=== PATIENT | male | born 1995 | race Caucasian/White ===

== ENCOUNTER 2017-11-02 10:46 | Inpatient (IN) | payer BC, OTHER ==
[~2017-11-02] VITALS: Ht 177.8 cm; Wt 59.4 kg
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
[2017-11-02 11:26] VITALS: BP 147/85
[2017-11-02] MEDS ORDERED: LORAZEPAM 2 MG/1 ML VIAL IM PRN (11:30)
[2017-11-02] MEDS ORDERED: MAG HYDROX/AL HYDROX/SIMETH 30 ML LIQUID UDC PO PRN (11:30)
[2017-11-02] MEDS ORDERED: MAGNESIUM HYDROXIDE 30 ML LIQUID UDC PO PRN (11:30)
[2017-11-02] MEDS ORDERED: DIAZEPAM 10 MG TABLET PO PRN (11:30)
[2017-11-02] MEDS ORDERED: DIAZEPAM 5 MG TABLET PO PRN (11:30)
[2017-11-02] MEDS ORDERED: LOPERAMIDE HCL 2 MG CAPSULE PO PRN ×2 (11:30)
[2017-11-02] MEDS ORDERED: MIRALAX 17 GM POWD.PACK PO PRN (11:30)
[2017-11-02] MEDS ORDERED: CLONIDINE HCL 0.1 MG TABLET PO PRN (11:30)
[2017-11-02] MEDS ORDERED: BUPRENORPHINE HCL 2 MG TAB.SUBL SL PRN (11:30)
[2017-11-02] MEDS ORDERED: ACETAMINOPHEN 325 MG TABLET PO PRN (11:30)
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
[2017-11-02 12:00] VITALS: BP 147/85
[2017-11-02] MEDS ORDERED: NICOTINE POLACRILEX 4 MG GUM-PK OF TEN BC PRN (12:15)
--- NOTE | 2017-11-02 12:30 | NUR ---
Nursing Note: Patient was given 2 bottles of water to increase oral fluid intake so he can provide urine for UDS. Patient states that he will try. However, patient continues to have inappropriate behavior by saying "This place is so stupid!" Staff redirected the patient and reassurance was provided.
[2017-11-02] MEDS: PHENOBARBITAL 60 MG TABLET PO SCH ×3 (13:00→21:47)
[2017-11-02] MEDS: METHOCARBAMOL 750 MG TABLET PO PRN (13:21)
[2017-11-02] MEDS: NICOTINE 14 MG/24HR PATCH TD PRN (13:26)
--- NOTE | 2017-11-02 13:26 | NUR ---
Clonidine 0.1mg PO/Robaxin 750 mg PO given: Patient complained of chills, hot flashes, anxiety and agitation. BP 147/85, Pulse 101. Also noted with complain of 6/10 myalgia. Education provided regarding med being administered. Patient stated "I know what meds I am taking and I don't need you to educate me on that. I want my phenobarbital." Reminded patient of unit's rules and regulations and that he needs to provide urine for UDS. Patient stated "This is such a stupid rule! Tell Dr. Brown that he is a douche bag." Boundaries were set and encouraged good behavior. Patient verbalized consent and agreed to take medications. PRN Clonidine and Robaxin were given as ordered. Will monitor for effectiveness.
--- NOTE | 2017-11-02 13:59 | NUR ---
Phenobarbital at 1300 PO not given: Patient still has not provided urine for UDS at this time. Phenobarbital at 1300 not given.
--- NOTE | 2017-11-02 14:26 | NUR ---
Re-assessment: Clonidine and Robaxin Per patient, Clonidine and Robaxin were mildly effective in reducing anxiety, agitation, chills, hot flashes, and muscle pain. PL 5/10. Patient was encouraged to increase oral fluid intake but is non-compliant. Patient is still unable to provide urine for UDS at this time.
[2017-11-02 14:45] LABS: BASOPHILS # (AUTO) 0.1 K/uL (0.0-8.0); BASOPHILS % (AUTO) 1.3 % (0.0-2.0); EOSINOPHILS # (AUTO) 0.1 K/uL (0.0-0.7); EOSINOPHILS % (AUTO) 2.2 % (0.0-7.0); HEMATOCRIT 41.3 % (36.7-47.1); HEMOGLOBIN 14.2 g/dL (12.5-16.3); LYMPHOCYTES # (AUTO) 1.4 K/uL (20.0-40.0); LYMPHOCYTES % (AUTO) 25.1 % (20.5-51.5); MEAN CORPUSCULAR HEMOGLOBIN 29.9 uug (23.8-33.4); MEAN CORPUSCULAR HGB CONC 34 g/dL (32.5-36.3); MEAN CORPUSCULAR VOLUME 86.9 fL (73.0-96.2); MONOCYTES # (AUTO) 0.4 K/uL (2.0-10.0); MONOCYTES % (AUTO) 6.5 % (0.0-11.0); NEUTROPHILS # (AUTO) 3.5 K/uL (1.8-8.9); NEUTROPHILS % (AUTO) 64.9 % (38.5-71.5); PLATELET COUNT (AUTO) 258 K/uL (152-348); RED BLOOD CELL COUNT(AUTO) 4.75 MIL/uL (4.06-5.63); WHITE BLOOD COUNT (AUTO) 5.5 K/uL (3.6-10.2)
[2017-11-02] MEDS ORDERED: PREG300C PO (14:51)
[2017-11-02] MEDS ORDERED: DIAZ10TA PO (14:51)
[2017-11-02] MEDS ORDERED: GABA-532 PO (14:51)
[2017-11-02 14:56] LABS: ALANINE AMINOTRANSFERASE 21 U/L (16-63); ALKALINE PHOSPHATASE 109 U/L (50-136); ASPARTATE AMINOTRANSFERASE 16 U/L (15-37); BILIRUBIN,TOTAL 0.3 mg/dL (0.2-1.0); CARBON DIOXIDE 32 mmol/L (21-32); CHLORIDE 105 mmol/L (98-107); CREATININE 0.8 mg/dL (0.6-1.3); GLUCOSE 80 mg/dL (74-106); MAGNESIUM 1.8 mg/dL (1.8-2.4); POTASSIUM 4.4 mmol/L (3.5-5.1); TOTAL PROTEIN, SERUM 6.9 g/dL (6.4-8.2); UREA NITROGEN, BLOOD 10 mg/dL (7-18)
[2017-11-02 15:12] LABS: ETHANOL < 3 MG/DL (0-0)
[2017-11-02 16:00] VITALS: BP 114/73
--- NOTE | 2017-11-02 16:28 | NUR ---
Zofran 4 mg IM given/Behavior Patient noted with x 1 episode of vomiting immediately after giving Phenobarbital 120mg PO. Offered Zofran 4 mg IM. Patient is unable to tolerate PO Zofran at this time due to vomiting and nausea. Patient stated "I don't want Zofran injection, I don't need it. I know what that is. I need Phenobarbital. I need 120 mg of Phenobarbital." Education provided and informed patient that Zofran will help him feel more comfortable and to prevent him from vomiting even more." Patient eventually agreed on taking the medication. Zofran 4 mg IM given was given. Will monitor for effectiveness. As soon after Zofran 4 mg IM was given, patient then demanded to make a phone call, yelling "I need to make a phone call right now! I need to tell my parents what is going on here. They need to know that you guys are not medicating me and I am about to have a seizure right now!" Re-assurance provided that staff and nurses are doing everything they can to keep him comfortable. BP 114/73, Pulse 81. Dr. Brown made aware and notified of patient's behavior. Patient is still unable to provide urine at this time. Offered patient to be straight catheterized to be able to provide urine. However patient strongly refused and stated "I don't want you guys to sodomize me." Patient education provided and reassurance provided. Respected patient's rights. Will continue to monitor. Addendum: 11/02/17 at 1722 by LUISA BONDS LVN Error in charting. Wrong time documented. Correct time is at 1658.
--- NOTE | 2017-11-02 16:43 | NUR ---
Phenobarbital 120 mg PO given for 1700: Dr. Brown ordered for patient to receive 1700 dose of Phenobarbital despite the patient not being able to provide urine for UDS. Patient continues to be non-compliant with increasing oral fluid intake. States "I have been drinking water." However 2 water bottles that were provided to him since upon admission have not been touched as witnessed and reported by male BRUSH HAND assigned to the patient.
[2017-11-02] MEDS: ONDANSETRON 4 MG/2 ML VIAL IM PRN (16:58)
--- NOTE | 2017-11-02 16:58 | NUR ---
Zofran 4 mg IM given/Behavior Patient noted with x 1 episode of vomiting immediately after giving Phenobarbital 120mg PO. Offered Zofran 4 mg IM. Patient is unable to tolerate PO Zofran at this time due to vomiting and nausea. Patient stated "I don't want Zofran injection, I don't need it. I know what that is. I need Phenobarbital. I need 120 mg of Phenobarbital." Education provided and informed patient that Zofran will help him feel more comfortable and to prevent him from vomiting even more." Patient eventually agreed on taking the medication. Zofran 4 mg IM given was given. Will monitor for effectiveness. As soon after Zofran 4 mg IM was given, patient then demanded to make a phone call, yelling "I need to make a phone call right now! I need to tell my parents what is going on here. They need to know that you guys are not medicating me and I am about to have a seizure right now!" Re-assurance provided that staff and nurses are doing everything they can to keep him comfortable. BP 114/73, Pulse 81. Dr. Brown made aware and notified of patient's behavior. Patient is still unable to provide urine at this time. Offered patient to be straight catheterized to be able to provide urine. However patient strongly refused and stated "I don't want you guys to sodomize me." Patient education provided and reassurance provided. Respected patient's rights. Will continue to monitor.
[2017-11-02] MEDS ORDERED: PHENOBARBITAL 60 MG TABLET PO ONE (17:15)
--- NOTE | 2017-11-02 17:28 | NUR ---
Re-assessment: Zofran 4 mg IM No further episodes of vomiting noted. Relief from nausea noted
--- NOTE | 2017-11-02 17:37 | NUR ---
Phenobarbital 90 mg PO given: MD Brown ordered for patient to receive 90 mg of Phenobarbital at this time. Due to patient vomitted immediately after the 1700 dose of Phenobarbital 120mg. Patient education provided. Patient verbalized satisfaction with care.
--- NOTE | 2017-11-02 19:13 | NUR ---
End of Shift Notes: Patient still has not provided urine at this time but was placed on a 6-day Phenobarbital and 6-day Subutex taper as ordered. Initial dose given at 1700. Patient noted with multiple behavioral issues and non-adherent to policies rules and regulations. Last CIWA 9, COWS 8. One time Phenobarbital 90 mg PO given due to patient immediately vomitted 120 mg dose at 1700. Zofran 4 mg IM given at 1658 with help after 30 minutes. On 1:1 at this time due to seizure risk and high Phenobarbital taper. All needs met and attended. Will continue to monitor.
--- NOTE | 2017-11-02 19:45 | NUR ---
Start of Shift Notes Received a 22 year old male admitted on 11/02/2017 for Opiates and Benzo dependence. He is alert and oriented x 4. Verbally responsive. He reports family hx of heart disease, anxiety disorder, substance abuse. Patient placed on a 1:1 at this time due to patient will be on high doses of phenobarbital medication regimen and high seizure risk. During the rounds at 1945, px reported high anxiety and auditory hallucination but can't understand what he hears. COWS 8 and CIWA 11. Respirations are even and unlabored. Safety precautions observed. Bed on lowest position, side rails up 2x, and call light within reach. We'll continue to monitor.
[2017-11-02 20:00] VITALS: BP 132/79
[2017-11-02] MEDS: ONDANSETRON ODT 4 MG TAB.RAPDIS SL PRN (20:49)
--- NOTE | 2017-11-02 20:49 | NUR ---
PRN Zofran SL Px vomited 1x. Zofran 4 mg/tab, 1 tab given SL as PRN med. We'll continue to monitor.
[2017-11-02] MEDS: OXCARBAZEPINE 150 MG TABLET PO SCH (21:47)
--- NOTE | 2017-11-02 21:49 | NUR ---
Reassessment of Nausea Px verbalized nausea still there but emesis stopped after an hour of administration of Zofran 4 mg tab SL. We'll continue to monitor.
[2017-11-03] VITALS: BP 123/72
--- NOTE | 2017-11-03 | NUR ---
COWS and CIWA deferred COWS and CIWA deferred due to the px is asleep. To assess if the px is awake per doctor's order. We'll continue to monitor.
[2017-11-03] MEDS: DIAZEPAM 10 MG TABLET PO PRN ×2 (03:45→12:38)
[2017-11-03] MEDS: METHOCARBAMOL 750 MG TABLET PO PRN ×2 (03:45→12:38)
--- NOTE | 2017-11-03 03:45 | NUR ---
PRN meds Px woke up with complaints of body aches 07/05, very high anxiety, tremors, still with auditory hallucinations, mild nausea, mild H/A and agitations and verbalizes that he is withdrawing. COWS 12 and CIWA 15. Valium 10 mg/tab, 1 tab and Robaxin 750 mg/tab, 1 tab given PO as PRN med. Subutex 2 mg/tab, 2 tabs given SL as PRN med. We'll continue to monitor.
[2017-11-03 04:00] VITALS: BP 127/77
--- NOTE | 2017-11-03 07:00 | NUR ---
PRN Valium and Zofran Px complained of High Anxiety, hallucinations, nausea, tremors, body pains, H/A. CIWA 20. Valium 10 mg/tab, 2 tabs given PO and Zofran 4 mg/tab, 1 tab given SL as PRN meds. We'll continue to monitor.
[2017-11-03] MEDS: ONDANSETRON ODT 4 MG TAB.RAPDIS SL PRN ×2 (07:02→15:09)
--- NOTE | 2017-11-03 07:21 | NUR ---
End of Shift Notes 22 year old male admitted on 11/02/2017 for Opiates and Benzo dependence. He is alert and oriented x 4. Verbally responsive. He reports family hx of heart disease, anxiety disorder, substance abuse. Patient placed on a 1:1 at this time due to patient will be on high doses of phenobarbital medication regimen and high seizure risk. During the shift, px reported high anxiety and auditory hallucination but cant understand what he hears. Px vomited 1x. Zofran 4 mg/tab, 1 tab given SL as PRN med. Vomiting was resolved after an hour. At 0345, Px woke up with complaints of body aches 8/10, very high anxiety, tremors, still with auditory hallucinations, mild nausea, mild H/A and agitations and verbalizes that he is withdrawing. COWS 12 and CIWA 15. Valium 10 mg/tab, 1 tab and Robaxin 750 mg/tab, 1 tab given PO as PRN med. Subutex 2 mg/tab, 2 tabs given SL as PRN med. Oral intake of 500 ml, NO urine, No BM. Slept for 6 hours. Still no UDS. At 0700, Px complained of High Anxiety, hallucinations, nausea, tremors, body pains, H/A. CIWA 20. Valium 10 mg/tab, 2 tabs given PO and Zofran 4 mg/tab, 1 tab given SL as PRN meds. Respirations are even and unlabored. Safety precautions observed. Bed on lowest position, side rails up 2x, and call light within reach. We'll continue to monitor.
--- NOTE | 2017-11-03 07:35 | NUR ---
START OF SHIT Received report from lamps tester and inspector nurse. Pt is lying in bed watching TV. 1:[address] for safety r/t unsteady gait. He is a 22 yo male admitted to [facility] on 11/02 for BZD and suboxone dependence. NKA, full code status, and on a regular diet. PMH of neuropathy, seizures r/t withdrawal, neuropathy, anxiety, mood disorder, asthma, and ADHD. On admission he reported using clonazolam 5mg per day, suboxone 16mg per day, ambien 20mg per day, phenibut unspecified amount, and valium 10mg per day. 6 day Phenobarbital and 6 day Subutex start today. He reports chills, nausea, headache, and body aches. Fall and seizure precautions in place. Bed is down with call light in reach. Addendum: 11/03/17 at 1325 by KEVIN SMITH RN Pt denies any hallucinations. He reports "I slept so I don't have them".
[2017-11-03 08:00] VITALS: BP 126/70
--- NOTE | 2017-11-03 08:02 | NUR ---
PRN Zofran reassessment PRN Zofran administered by night nurse. Pt reports medication not effective for nausea. He continues to have nausea without vomiting.
[2017-11-03] MEDS: ONDANSETRON 4 MG/2 ML VIAL IM PRN (08:04)
--- NOTE | 2017-11-03 08:04 | NUR ---
PRN Zofran IM Pt reports continued nausea. Zofran IM administered.
--- NOTE | 2017-11-03 08:34 | NUR ---
PRN Zofran IM reassessment PRN Zofran IM effective. Pt reports nausea is relieved.
[2017-11-03] MEDS: PHENOBARBITAL 60 MG TABLET PO SCH ×3 (08:54→21:22)
[2017-11-03] MEDS: OXCARBAZEPINE 150 MG TABLET PO SCH (08:55)
[2017-11-03] MEDS: IBUPROFEN 600 MG TABLET PO PRN ×2 (08:56→17:13)
[2017-11-03] MEDS: BUPRENORPHINE HCL 2 MG TAB.SUBL SL SCH ×4 (08:56→21:23)
--- NOTE | 2017-11-03 08:57 | NUR ---
PRN Motrin Pt reports headache. PRN Motrin administered.
[2017-11-03] MEDS ORDERED: TUBERCULIN,PURIF.PROT.DERIV. 5 TU/0.1 ML TEST ID ONE (09:00)
--- NOTE | 2017-11-03 09:57 | NUR ---
PRN Motrin reassessment PRN Motrin effective. Pt reports headache is relieved.
--- NOTE | 2017-11-03 11:00 | NUR ---
Nursing Note Pt is having urinary retention. Bladder scan performed with >900mL detected. Pt was able to void a large amount or urine independently immediately after. Urine sample obtained for drug screen. aware.
[2017-11-03 11:54] LABS: *AMPHETAMINE, URINE NEGATIVE (NEGATIVE); *BARBITURATE, URINE POSITIVE (NEGATIVE); *CANNABINOID, URINE POSITIVE (NEGATIVE); *COCCAINE, URINE NEGATIVE (NEGATIVE); *OPIATE, URINE NEGATIVE (NEGATIVE); *PHENCYCLIDINE SCREEN,URINE NEGATIVE (NEGATIVE)
[2017-11-03 12:00] VITALS: BP 124/78
--- NOTE | 2017-11-03 12:40 | NUR ---
PRN Valium, Tylenol, and Robaxin Pt reports anxiety, headache, and body aches. He is observed with facial flushing, mild tremors, and restless legs. CIWA score 11. PRN Valium 10mg, Tylenol, and Robaxin administered.
[2017-11-03] MEDS ORDERED: TAMSULOSIN HCL 0.4 MG CAP.SR.24H PO SCH (13:00)
[2017-11-03] MEDS ORDERED: PHENOBARBITAL 60 MG TABLET PO SCH (13:00)
--- NOTE | 2017-11-03 13:40 | NUR ---
PRN Valium, Tylenol, and Robaxin reassessment PRN Valium, Tylenol, and Robaxin effective. Pt reports anxiety level is reduced. Headache is relieved. Body aches are reduced. CIWA score 4.
[2017-11-03] MEDS ORDERED: OLANZAPINE ZYDIS 5 MG TAB.RAPDIS PO PRN (13:45)
--- NOTE | 2017-11-03 15:09 | NUR ---
PRN Zofran Pt reports nausea without vomiting. PRN Zofran administered.
--- NOTE | 2017-11-03 15:39 | NUR ---
PRN Zofran reassessment PRN Zofran effective. Pt reports nausea is relieved.
[2017-11-03 16:07] LABS: HEPATITIS B SURFACE AG Negative (Negative)
[2017-11-03 16:30] VITALS: BP 107/75
--- NOTE | 2017-11-03 17:15 | NUR ---
PRN Motrin Pt reports headache 04/04. PRN Motrin administered.
--- NOTE | 2017-11-03 18:15 | NUR ---
PRN Motrin reassessment PRN Motrin effective. Pt reports headache is relieved.
--- NOTE | 2017-11-03 19:10 | NUR ---
END OF SHIFT Report provided to shift supervisor melting nurse. Pt is lying in bed resting. He is a 22 yo male admitted to [facility] on 11/02 for BZD and suboxone dependence. He is A&O and ambulatory with a steady gait. 1:1 CUSTOMS AND BORDER PROTECTION INSPECTOR removed. NKA, full code status, and on a regular diet. PMH of neuropathy, seizures r/t drug withdrawal, neuropathy, anxiety, mood disorder, asthma, and ADHD. On admission he reported using clonazolam 5mg per day, suboxone 16mg per day, ambien 20mg per day, phenibut unspecified amount, and valium 10mg per day. 6 day Phenobarbital and 6 day Subutex started today. Pt provided urine for UDS and voided freely. PRN Valium, Zofran IM, Zofran PO, Motrin x2, Robaxin, and Tylenol administered. Last COWS 7 and CIWA 4. He drank 1500mL. Fall and seizure precautions in place. Bed is down with call light in reach.
--- NOTE | 2017-11-03 19:15 | NUR ---
START OF SHIFT NOTE : Pt. is a 22 yo male admitted to [facility] on 11/02/2017 for BZD and suboxone dependence. NKA, full code status, and on a regular diet. PMH of neuropathy, seizures r/t drug withdrawal, neuropathy, anxiety, mood disorder, asthma, and ADHD. Pt. placed on modified 6 days Phenobarbital an dmodified 6 days Subutex taper on 11/02/2017, tolerating well. Pt. is in the activity room , watching TV , but wants his medications after 20:00. . Safety measures in place : bed on lowest position with side rails x2 up for safety, call light within reach. Will continue to monitor closely and offer help.
[2017-11-03 20:00] VITALS: BP 135/77
[2017-11-03] MEDS ORDERED: OXCARBAZEPINE 300 MG TABLET PO SCH (21:00)
--- NOTE | 2017-11-03 21:00 | NUR ---
PRN BENADRYL Pt. complains of sleeplessness. PRN BENADRYL given as ordered. Safety measures in place : bed on lowest position with side rails x2 up for safety, call light within reach. Will continue to monitor closely and offer help.
[2017-11-03] MEDS: diphenhydrAMINE 50 MG CAPSULE PO PRN (21:22)
[2017-11-03] MEDS: TAMSULOSIN HCL 0.4 MG CAP.SR.24H PO SCH (21:22)
--- NOTE | 2017-11-03 22:00 | NUR ---
RE-ASSESSMENT NAV Pt. is sleeping, VS=16, unlabored and even.. Safety measures in place : bed on lowest position with side rails x2 up for safety, call light within reach. Will continue to monitor closely and offer help.
--- NOTE | 2017-11-04 06:53 | NUR ---
END OF SHIFT NOTE : Pt. is a 22 yo male admitted to [facility] on 11/02/2017 for BZD and suboxone dependence. NKA, full code status, and on a regular diet. PMH of neuropathy, seizures r/t drug withdrawal, neuropathy, anxiety, mood disorder, asthma, and ADHD. Pt. placed on modified 6 days Phenobarbital an dmodified 6 days Subutex taper on 11/02/2017, tolerating wellPt remains compliant with the treatment plan. PRN BENADRYL given during my shift. V/S remain WNL. RR=16, even and unlabored, lungs clear upon auscultation, abdomen soft and non- distended. Pt denies nausea, vomiting and diarrhea. CIWA and COWS taken when pt. was alert during the night, LAST CIWA=3 ,COWS=4 at 0400 , INTAKE= 1000 ml, voided x3 , slept6 hours. Safety measures in place : bed on lowest position with side rails x2 up for safety, call light within reach. Will continue to monitor closely and offer help.
--- NOTE | 2017-11-04 07:45 | NUR ---
START OF SHIFT RECEIVED PT IN ROOM, A/O X4, RESPIRATIONS EVEN AND UNLABORED. PT REPORTS HAVING GENERALIZED BODY ACHES, ANXIETY AND RESTLESSNESS. PT IS ON A MODIFIED 6 DAY SUBUTEX AND PHENOBARBITAL TAPER ENDING ON THE 11/08/17. PT STATES, "I FINALLY SLEPT WELL LAST NIGHT," ENCOURAGED PT TO DRINK MORE FLUIDS TO PRMOTE DETOX PROCESS. BED ON LOWEST POSITION WITH SIDE RAILS UPX2, CALL LIGHT WITHIN REACH. SAFETY MEASURES IN PLACE. WILL CONTINUE TO MONITOR AND PROVIDE SUPPORT.
[2017-11-04 08:00] VITALS: BP 112/70
[2017-11-04] MEDS: METHOCARBAMOL 750 MG TABLET PO PRN (08:53)
--- NOTE | 2017-11-04 08:53 | NUR ---
PRN PT C/O OF HEADACHE AND PT C/O OF PAIN IN THE SIDE; PT STATED, "I HAVE PAIN IN THE SIDE FROM SLEEPING." MOTRIN 600 MG PO PRN AND ROBAXIN 750 MG PO PRN WAS ADMINISTRATED. PT TOLERATED WELL.
[2017-11-04] MEDS: PHENOBARBITAL 60 MG TABLET PO SCH ×3 (08:54→21:34)
[2017-11-04] MEDS: BUPRENORPHINE HCL 2 MG TAB.SUBL SL SCH ×3 (08:54→21:36)
[2017-11-04] MEDS: IBUPROFEN 600 MG TABLET PO PRN (08:54)
[2017-11-04] MEDS ORDERED: OXCARBAZEPINE 150 MG TABLET PO SCH (09:00)
--- NOTE | 2017-11-04 09:53 | NUR ---
REASSESSMENT PT REPORTED ROBAXIN AND MOTRIN WAS EFFECTIVE. WILL CONTINUE TO MONITOR.
--- NOTE | 2017-11-04 10:45 | NUR ---
Therapist prompted client about group times. Client stated he most likely won't attend groups today because he is not feeling well.
[2017-11-04 12:00] VITALS: BP 122/76
[2017-11-04] MEDS ORDERED: DIAZEPAM 5 MG TABLET PO PRN (12:00)
[2017-11-04] MEDS ORDERED: DIAZEPAM 10 MG TABLET PO PRN ×2 (12:00)
--- NOTE | 2017-11-04 12:39 | NUR ---
PRN PT C/O OF INCREASED S/S OF W/D AND HIGH ANXIETY. VALIUM 10 MG PO PRN GIVEN. Addendum: 11/04/17 at 1322 by TERRY QUAN RN REECE Morse
--- NOTE | 2017-11-04 13:39 | NUR ---
REASSESSMENT PT REPORTED MEDICATION WAS EFFECTIVE UPON REASSESSMENT.
[2017-11-04] MEDS: BACLOFEN 10 MG TABLET PO SCH ×2 (14:24→21:34)
[2017-11-04 16:00] VITALS: BP 102/58
--- NOTE | 2017-11-04 19:15 | NUR ---
START OF SHIFT NOTE : Pt. is a 22 yo male admitted to [facility] on 11/02/2017 for BZD and suboxone dependence. NKA, full code status, and on a regular diet. PMH of neuropathy, seizures r/t drug withdrawal, neuropathy, anxiety, mood disorder, asthma, and ADHD. Pt. placed on modified 6 days Phenobarbital and modified 6 days Subutex taper on 11/02/2017, tolerating well. Pt. is resting in the bed , watching TV , but wants his medications after 20:00. Safety measures in place : bed on lowest position with side rails x2 up for safety, call light within reach. Will continue to monitor closely and offer help.
--- NOTE | 2017-11-04 19:19 | NUR ---
END OF SHIFT PT IN ROOM, A/O X4, RESPIRATIONS EVEN AND UNLABORED. PT REPORTS HAVING GENERALIZED BODY ACHES, ANXIETY. PT IS ON A MODIFIED 6 DAY SUBUTEX AND PHENOBARBITAL TAPER ENDING ON THE 11/08/17. PT STATES, "I FINALLY SLEPT WELL LAST NIGHT." PT C/O OF HEADACHE AND STATED "I HAVE PAIN IN MY SIDE FROM SLEEPING" AND REQUESTED ROBAXIN. ROBAXIN AND MOTRIN WAS GIVEN AND PT REPORTED MEDS WERE EFFECTIVE. PT C/O OF INCREASED S/S OF W/D WITH HIGH ANXIETY; VALIUM 10 MG PO PRN GIVEN AT 1239 AND PT REPORTED IT EFFECTIVE AT REASSESSMENT. PT WENT TO GROUP TODAY. ENCOURAGED PT TO DRINK MORE FLUIDS TO PRMOTE DETOX PROCESS. BED ON LOWEST POSITION WITH SIDE RAILS UPX2, CALL LIGHT WITHIN REACH. SZ/FALL/SAFETY MEASURES IN PLACE. WILL GIVE ALL PERTINENT INFORMATION AND ENDORSEMENT TO B2B ACCOUNT EXECUTIVE NURSE
[2017-11-04 20:00] VITALS: BP 113/68
--- NOTE | 2017-11-04 20:00 | NUR ---
PRN ZOFRAN SL, Pt. complains of nausea, vomited x1. PRN ZOFRAN SL given as ordered. Safety measures in place : bed on lowest position with side rails x2 up for safety, call light within reach. Will continue to monitor closely and offer help.
[2017-11-04] MEDS: TAMSULOSIN HCL 0.4 MG CAP.SR.24H PO SCH (20:02)
[2017-11-04] MEDS: ONDANSETRON ODT 4 MG TAB.RAPDIS SL PRN ×3 (20:02→21:59)
--- NOTE | 2017-11-04 21:00 | NUR ---
AFSHAN ROBAXIN, VISTARIL Pt. complains of increased level of anxiety, mild muscle spasm. PRN ROBAXIN, VISTARIL given as ordered. Safety measures in place : bed on lowest position with side rails x2 up for safety, call light within reach. Will continue to monitor closely and offer help. Addendum: 11/05/17 at 0647 by ALIVIA DUFFY RN WRONG ENTRY
--- NOTE | 2017-11-04 21:00 | NUR ---
RE-ASSESSMENT TERRY STERN Pt. is sleeping, RR=16 unlabored and even. Safety measures in place : bed on lowest position with side rails x2 up for safety, call light within reach. Will continue to monitor closely and offer help.
[2017-11-04] MEDS: OXCARBAZEPINE 300 MG TABLET PO SCH (21:35)
[2017-11-04] MEDS: CLONIDINE HCL 0.1 MG TABLET PO SCH (21:35)
--- NOTE | 2017-11-05 06:30 | NUR ---
END OF SHIFT NOTE : Pt. is a 22 yo male admitted to [facility] on 11/02/2017 for BZD and suboxone dependence. NKA, full code status, and on a regular diet. PMH of neuropathy, seizures r/t drug withdrawal, neuropathy, anxiety, mood disorder, asthma, and ADHD. Pt. placed on modified 6 days Phenobarbital and modified 6 days Subutex taper on 11/02/2017, tolerating well . Pt remains compliant with the treatment plan.PT. vomited x1 in HS. PRN ZOFRAN SL given during my shift. V/S remain WNL. RR=16, even and unlabored, lungs clear upon auscultation, abdomen soft and non- distended. Pt denies nausea, vomiting and diarrhea at this time. CIWA and COWS taken when pt. was alert during the night, LAST CIWA=3 ,COWS=2 at 0400 , [id number] ml, voided x2 , slept 6 hours. Safety measures in place : bed on lowest position with side rails x2 up for safety, call light within reach. Will continue to monitor closely and offer help.
--- NOTE | 2017-11-05 07:44 | NUR ---
START OF SHIFT RECEIVED PT RESTING IN ROOM, A/O X4, RESPIRATIONS EVEN AND UNLABORED. PT REPORTS HAVING GENERALIZED BODY ACHES, ANXIETY AND RESTLESSNESS. PT IS ON A MODIFIED 6 DAY SUBUTEX AND PHENOBARBITAL TAPER ENDING ON THE 11/08/17. ENCOURAGED PT TO DRINK MORE FLUIDS TO PRMOTE DETOX PROCESS. BED ON LOWEST POSITION WITH SIDE RAILS UPX2, CALL LIGHT WITHIN REACH. SAFETY MEASURES IN PLACE. WILL CONTINUE TO MONITOR AND PROVIDE SUPPORT.
[2017-11-05 08:00] VITALS: BP 109/63
[2017-11-05] MEDS: CLONIDINE HCL 0.1 MG TABLET PO SCH ×2 (08:59→20:24)
[2017-11-05] MEDS: PHENOBARBITAL 60 MG TABLET PO SCH ×2 (08:59→12:51)
[2017-11-05] MEDS: BACLOFEN 10 MG TABLET PO SCH (09:00)
[2017-11-05] MEDS ORDERED: BUPRENORPHINE HCL 2 MG TAB.SUBL SL SCH (09:00)
--- NOTE | 2017-11-05 09:00 | NUR ---
PRN PT C/O CONSTIPATION AND MILK OF MAGNESIUM PO WAS ADMINISTERED. PT TOLERATED WELL.
[2017-11-05] MEDS: OXCARBAZEPINE 300 MG TABLET PO SCH ×3 (09:07→20:22)
--- NOTE | 2017-11-05 10:00 | NUR ---
REASSESSMENT PT REPORTED MAALOX WAS NOT EFFECTIVE BUT DOES NOT WANT ANY INTERVENTION AT THIS TIME.
[2017-11-05 12:00] VITALS: BP 103/58
[2017-11-05] MEDS: BUPRENORPHINE HCL 2 MG TAB.SUBL SL SCH ×2 (15:35→20:23)
[2017-11-05] MEDS: BACLOFEN 20 MG TABLET PO SCH ×2 (15:35→20:22)
[2017-11-05 16:00] VITALS: BP 108/62
[2017-11-05] MEDS ORDERED: PHENOBARBITAL 60 MG TABLET PO SCH ×2 (17:00→21:00)
--- NOTE | 2017-11-05 19:35 | NUR ---
END OF SHIFT PT RESTING IN ROOM, A/O X4, RESPIRATIONS EVEN AND UNLABORED. PT REPORTS HAVING GENERALIZED BODY ACHES, ANXIETY AND RESTLESSNESS. PT APPEARS AGITATED. PT IS ON A MODIFIED 6 DAY SUBUTEX AND PHENOBARBITAL TAPER ENDING ON THE 11/08/17. PT C/O OF CONSTIPATION AND MAALOX WAS GIVEN. PT C/O OF BEING UNABLE TO URINATE AND REQUESTED MULTIPLE TIMES THROUGHOUT THE DAY TO HAVE MORE OF FLOMAX INCREASED; PT REFUSED TO HAVE A CATHETER DOCTOR NOTIFIED, NO NEW ORDERS. ENCOURAGED PT TO DRINK MORE FLUIDS TO PRMOTE DETOX PROCESS. BED ON LOWEST POSITION WITH SIDE RAILS UPX2, CALL LIGHT WITHIN REACH. SAFETY MEASURES IN PLACE. WILL GIVE ALL ENDORSEMENT TO PROJECT MANAGER ENTERTAINMENT AND MEDIA NURSE
--- NOTE | 2017-11-05 19:35 | NUR ---
START OF SHIFT Patient is 22 year old male admitted on 11/02/2017 for Benzodiazepines and Suboxone dependence. Patient continues 6 day Phenobarbital and Modified 6 day Subutex taper. Patient tolerated well without ASE. Patient reports NKA, Regular Diet, is on Fall and Seizures Precautions. PMH: Anxiety, Mood disorder, ADHD, Withdrawal Induced Seizures History, Asthma, History of RUE fracture. Upon endorsement, patient is in his room resting on the bed alert and oriented x4. Patient denies SI/HI. COWS 7, CIWA 6: Patient presented with anxiety, agitation, nervousness, restlessness, generalized body aches, mild headache, and sweating. VS: T: 98.3, HR:71, BP:99/61, RA O2Sat:100%, RR:19, generalized body aches pain level "6/10". Respirations are even and unlabored. Lung Sounds are clear throughout. Patient denied SOB and chest pain. Heart rate is regular, no murmur noted. Bowel Sounds are active in all four quadrants. Patient reports "urinated small amount 2 hours ago but bladder still full". Bladder still distended. Patient refused Cath. Encouraged fluids intake as tolerated. Encouraged to attend groups activities. Skin is intact, warm and dry to touch All needs met. Safety measures on place. Call light within reach, bed in lowest position and locked, padded rails up bilaterally rails up bilaterally. Patient endorsed by day shift nurse. Report received. Will continue to monitor closely.
[2017-11-05 20:00] VITALS: BP 101/61
[2017-11-05] MEDS: TAMSULOSIN HCL 0.4 MG CAP.SR.24H PO SCH (20:23)
[2017-11-05] MEDS: NICOTINE 14 MG/24HR PATCH TD PRN (20:37)
--- NOTE | 2017-11-05 22:11 | NUR ---
PATIENT URINATED 200 ML OF CLEAR YELLOW URINE.
[2017-11-05] MEDS: HYDROXYZINE PAMOATE 25 MG CAPSULE PO PRN (23:03)
--- NOTE | 2017-11-05 23:03 | NUR ---
PRN VISTARIL 50 MG 2 CAP PO ADMINISTRATION Patient c/o increased anxiety. PRN Vistaril 50 mg 2 capsule PO administrated with full glass of water as ordered. Patient tolerated well. All needs met. Safety measures on place. Call light within reach, bed in lowest position and locked, padded rails up bilaterally. Will continue to monitor closely.
[2017-11-05] MEDS ORDERED: HYDROXYZINE PAMOATE 25 MG CAPSULE ONE (23:16)
[2017-11-06] VITALS: BP 106/57
--- NOTE | 2017-11-06 00:03 | NUR ---
RE-ASSESSMENT Patient is sleeping. Respirations even and unlabored. RR:16. PRN Vistaril 50 mg 2 cap PO for anxiety was effective. All needs met. Safety measures on place. Call light within reach, bed in lowest position and locked, padded rails up bilaterally rails up bilaterally. Will continue to monitor closely.
--- NOTE | 2017-11-06 04:00 | NUR ---
VS REFUSED AND COWS/CIWA DEFERRED Patient refused to be woken up for 0400 VS. COWS/CIWA deferred d/t patient sleeping to assess while patient is awake. Safety measures on place by hospital policy: Call light within reach, bed in lowest position and locked, side rails up x2. Will continue to monitor closely.
--- NOTE | 2017-11-06 07:06 | NUR ---
END OF SHIFT Patient is 22 year old male admitted on 11/02/2017 for Benzodiazepines and Suboxone dependence. Patient continues 6 day Phenobarbital and Modified 6 day Subutex taper, and tolerated well without ASE. Patient reports NKA, Regular Diet, is on Fall and Seizures Precautions. PMH: Anxiety, Mood disorder, ADHD, Withdrawal Induced Seizures History, Asthma, History of RUE fracture. Last COWS and decreased from COWS 6 @2000 to COWS 4 @0000. Last CIWA decreased from CIWA 6 @2000 to CIWA 3 @0000. Patient refused to be woken up for 0400 VS. COWS/CIWA deferred d/t patient sleeping to assess while patient is awake. During my shift patient presented during my shift with anxiety, agitation, nervousness, restlessness, body aches, tremors that can be felt, and sweating. Last VS @0000: T: 97.8, HR: 58, BP: 106/57, RA SPO2: 99%, RR 15, pain level "0/10". Patient denies SI/HI. Respirations unlabored and even. Patient denied cough, SOB, and chest pain. Abdomen is soft and non-tender. Skin remains intact, warm, and dry to touch. PRN Vistaril 50 mg 2 cap PO administrated for anxiety @2303 was effective. Patient slept 10 hours, intake 591ml, voided x2. Encouraged fluids intake as tolerated. Encouraged to attend groups activities. All needs met. Safety measures in place: Call light within reach, bed is locked and in the lowest position, padded bed rails up x2. Patient endorsed to day shift nurse. Report given.
[2017-11-06 08:00] VITALS: BP 105/60
--- NOTE | 2017-11-06 08:10 | NUR ---
START OF SHIFT: RECEIVED PT LAYING IN BED A/O X 4. HE STATES HE IS SLEEPING WELL AT NIGHT. HE REPORTS ANXIETY,BODY ACHES,INTERMITTENT SWEATS , CHILLS AND RESTLESSNESS. COWS 4 CIWA 4. MODIFIED PHENOBARBITAL. AND SUBUTEX TAPER IN PROGRESS TO MANAGE S/S OF W/D. ENCOURAGED INCREASED FLUIDS AND GROUP ATTENDANCE TO PROMOTE WELLNESS. WILL CONTINUE TO MONITOR.
[2017-11-06] MEDS ORDERED: BUPRENORPHINE HCL 2 MG TAB.SUBL SL SCH (09:00)
[2017-11-06] MEDS ORDERED: PHENOBARBITAL 60 MG TABLET PO SCH (09:00)
[2017-11-06] MEDS: CLONIDINE HCL 0.1 MG TABLET PO SCH ×2 (09:05→21:01)
[2017-11-06] MEDS: OXCARBAZEPINE 300 MG TABLET PO SCH ×3 (09:06→21:02)
[2017-11-06] MEDS: BACLOFEN 20 MG TABLET PO SCH ×3 (09:06→21:02)
[2017-11-06 12:00] VITALS: BP 91/60
[2017-11-06] MEDS: PHENOBARBITAL 60 MG TABLET PO SCH ×3 (14:13→21:02)
[2017-11-06] MEDS: BUPRENORPHINE HCL 2 MG TAB.SUBL SL SCH ×3 (14:13→21:01)
[2017-11-06 16:00] VITALS: BP 101/61
--- NOTE | 2017-11-06 17:21 | NUR ---
PT REPORTS NOT VOIDING ALL DAY. BLADDER SCAN DONE PER MD WHICH READ 594 ML. STRAIGHT CATH ORDERED PER MD. PT REFUSED CATH. HE WAS EDUCATED VERBALLY ABOUT CATHETERIZATION AND VERBALLY EXPRESSED UNDERSTANDING OF EDUCATION. HE INSISTS ON RECEIVING FLOMAX. MD MADE AWARE. WILL CONTINUE TO MONITOR.
--- NOTE | 2017-11-06 18:41 | NUR ---
PT AGREED TO HAVE A STRAIGHT CATH. [id number] ML OF DARK YELLOWISH ORANGE URINE THAT IS CLOUDY AND SEDIMENTED. UA COLLECTED. WILL CONTINUE TO MONITOR AND OFFER SUPPORT.
--- NOTE | 2017-11-06 18:47 | NUR ---
START OF SHIFT Patient is 22 year old male admitted on 11/02/2017 for Benzodiazepines and Suboxone dependence. Patient continues 6 day Phenobarbital and Modified 6 day Subutex taper, which tolerated well without ASE. Patient reports NKA, Regular Diet, is on Fall and Seizures Precautions. PMH: Anxiety, Mood disorder, ADHD, Withdrawal Induced Seizures History, Asthma, History of RUE fracture. Patient is in his alert and oriented x4. Patient denies SI/HI. COWS 5, CIWA 5: Patient presented with anxiety, agitation, nervousness, restlessness, tremors that can be felt, and sweating. VS: T: 97.6, HR:67, BP:115/69, RA O2Sat:100%, RR:19, pain level "0/10". Respirations are even and unlabored. Lung Sounds are clear throughout. Patient denied SOB and chest pain. Heart rate is regular, no murmur noted. Bowel Sounds are active in all four quadrants. Bladder Scan done during day shift as ordered: 594 ml urine retained. Straight catheter for urine retained done as ordered by day shift nurse: 1675 ml of urine obtained, and urine test collected as ordered. Doctor Jaswant Brown MD aware for results. Encouraged fluids intake as tolerated. Encouraged to attend groups activities. Skin is intact, warm and dry to touch. All needs met. Safety measures on place. Call light within reach, bed in lowest position and locked, padded rails up bilaterally. Patient endorsed by day shift nurse. Report received. Will continue to monitor closely.
--- NOTE | 2017-11-06 18:47 | NUR ---
END OF SHIFT: PT CONTINUES ON PHENOBARBITAL/SUBUTEX TAPER.LAST COWS 4 CIWA 2. HE ISOLATED IN ROOM AND DID NOT INTERACT WITH PEERS OR ATTEND GROUPS. HE REPORTED INABILITY TO VOID. SCAN DONE AND 594 ML URINE RETAINED. STRAIGHT CATHETER ORDERED AND ADMINISTERED . 1675 ML OF URINE OBTAINED. PT TOLERATED WELL. ENCOURAGED INCREASED FLUIDS URINE WAS DARK IN COLOR AND CLOUDY WITH SEDIMENTS. MD WILL ORDER UA. WILL CONTINUE TO MONITOR.
[2017-11-06 19:29] LABS: *BILIRUBIN,URIN NEGATIVE (NEGATIVE); *BLOOD, URINE NEGATIVE (NEGATIVE); *CLARITY,URINE CLOUDY (CLEAR); *COLOR,URINE YELLOW (YELLOW); *KETONES,URINE NEGATIVE (NEGATIVE); *PROTEIN,URINE NEGATIVE (NEGATIVE); *UROBILINOGEN,URINE 0.2 E.U./dl (NORMAL); LEUKOCYTE ESTERASE ,URINE NEGATIVE (NEGATIVE); NITRITE, URINE NEGATIVE (NEGATIVE); UGLUCOSE NEGATIVE (NEGATIVE)
[2017-11-06 19:34] LABS: BACTERIA,URINE FEW /HPF (NONE SEEN); RBC,URINE 0-3 /HPF (0-3); SQUAMOUS EPITHELIAL CELL,UR FEW /HPF (NONE SEEN); URINE AMORPHOUS PHOSPHATES MANY /HPF; WBC,URINE 0-3 /HPF (0-3)
[2017-11-06 20:00] VITALS: BP 115/69
[2017-11-06] MEDS: TAMSULOSIN HCL 0.4 MG CAP.SR.24H PO SCH (21:02)
[2017-11-06] MEDS: diphenhydrAMINE 50 MG CAPSULE PO PRN (23:35)
[2017-11-06] MEDS: HYDROXYZINE PAMOATE 25 MG CAPSULE PO PRN (23:35)
--- NOTE | 2017-11-06 23:35 | NUR ---
PRN BENADRYL 50 MG 1 CAP PO AND PRN VISTARIL 50 MG 2 CAP PO ADMINISTRATION Patient c/o increased anxiety and insomnia. PRN Benadryl 50 mg 1 capsule PO for insomnia and PRN Vistaril 50 mg 2 capsules PO administrated with full glass of water as ordered. Patient tolerated well. All needs met. Safety measures on place. Call light within reach, bed in lowest position and locked, padded rails up bilaterally rails up bilaterally. Will continue to monitor closely.
[2017-11-07] VITALS: BP 90/57
--- NOTE | 2017-11-07 00:35 | NUR ---
RE-ASSESSMENT Patient is sleeping. Respirations even and unlabored. RR 14. PRN Benadryl 50 mg 1 capsule PO for insomnia and PRN Vistaril 50 mg 2 capsules PO administrated for anxiety @2335 were effective. All needs met. Safety measures on place. Call light within reach, bed in lowest position and locked, padded rails up bilaterally rails up bilaterally. Will continue to monitor closely.
[2017-11-07 04:00] VITALS: BP 93/51
--- NOTE | 2017-11-07 07:05 | NUR ---
END OF SHIFT Patient is 22 year old male admitted on 11/02/2017 for Benzodiazepines and Suboxone dependence, continues ordered 6 day Phenobarbital and 6 day Subutex taper. Patient tolerated well without ASE. Patient remains compliant with treatment, medications, and diet regime. Patient reports NKA, Regular Diet, is on Fall and Seizures Precautions. PMH: Anxiety, Mood disorder, ADHD, Withdrawal Induced Seizures History, Asthma, History of RUE fracture. Last COWS 4 @0400. Last CIWA 3 @0400: Patient presented with anxiety, agitation, nervousness, restlessness, body aches, tremors that can be felt, and sweating. Last VS @0400: T: 97.8, HR: 61, BP: 93/51, RA SPO2: 99%, RR 16, pain level "0/10". Patient denies SI/HI. Respirations unlabored and even. Patient denied cough, SOB, and chest pain. Skin remains intact, warm, and dry to touch. PRN Vistaril 50 mg 2 cap PO administrated for anxiety @2335 and PRN Benadryl 50 mg 1 capsule PO for insomnia administrated@2335 were effective. Patient slept 4 hours, intake 1,000 ml, voided x2. Encouraged fluids intake as tolerated. Encouraged to attend groups activities. All needs met. Safety measures in place: Call light within reach, bed is locked and in the lowest position, padded bed rails up x2. Patient endorsed to day shift nurse. Report given.
--- NOTE | 2017-11-07 07:40 | NUR ---
START OF SHIFT RECEIVED PT RESTING IN ROOM, A/O X4, RESPIRATIONS EVEN AND UNLABORED. PT REPORTS HAVING SWEATS, ANXIETY AND RESTLESSNESS. PT IS ON A MODIFIED 6 DAY SUBUTEX AND PHENOBARBITAL TAPER ENDING ON THE 11/08/17. ENCOURAGED PT TO DRINK MORE FLUIDS TO PRMOTE DETOX PROCESS. BED ON LOWEST POSITION WITH SIDE RAILS UPX2, CALL LIGHT WITHIN REACH. SAFETY MEASURES IN PLACE. WILL CONTINUE TO MONITOR AND PROVIDE SUPPORT.
[2017-11-07 08:00] VITALS: BP 107/64
[2017-11-07] MEDS: BACLOFEN 20 MG TABLET PO SCH ×3 (08:57→21:11)
[2017-11-07] MEDS: BUPRENORPHINE HCL 2 MG TAB.SUBL SL SCH ×3 (08:58→21:11)
[2017-11-07] MEDS: TAMSULOSIN HCL 0.4 MG CAP.SR.24H PO SCH ×2 (08:58→21:10)
[2017-11-07] MEDS: OXCARBAZEPINE 300 MG TABLET PO SCH ×2 (08:58→16:14)
[2017-11-07] MEDS: PHENOBARBITAL 60 MG TABLET PO SCH ×3 (08:58→21:11)
[2017-11-07] MEDS: CLONIDINE HCL 0.1 MG TABLET PO SCH ×2 (08:59→21:10)
[2017-11-07] MEDS ORDERED: PHENOBARBITAL 60 MG TABLET PO SCH (09:00)
[2017-11-07] MEDS ORDERED: BUPRENORPHINE HCL 2 MG TAB.SUBL SL SCH (09:00)
[2017-11-07 12:00] VITALS: BP 107/64
[2017-11-07] MEDS: NICOTINE 14 MG/24HR PATCH TD PRN (13:36)
[2017-11-07 16:00] VITALS: BP 95/53
--- NOTE | 2017-11-07 19:00 | NUR ---
Start of Shift Patient Received. Patient is in activities room participating in a group meeting. Patient is a 22 year old male admitted on 11/02/17 for Benzo and Opiate Dependence under the care of Dr. Brown. He is currently receiving a 6 day Phenobarbital and 6 day Subutex taper. Patient verbalizes no known allergies, wishes to be full code, following a regular diet, placed on fall and seizure precautions, and skin noted intact. Patients past medical history noted as Neuropathy, anxiety, mood disorder, asthma, ADHD, and history of seizures due to withdrawal. Per endorsement, no PRN medications administered. Last noted COWS 4 and CIWA 3. All needs attended to promptly. Will continue plan of care as ordered.
--- NOTE | 2017-11-07 19:25 | NUR ---
END OF SHIFT PT RESTING IN ROOM, A/O X4, RESPIRATIONS EVEN AND UNLABORED. PT REPORTS HAVING SWEATS, ANXIETY AND RESTLESSNESS. PT STATED HE WANTED TO LEAVE DETOX 1 DAY EARLY. ENCOURAGED PT TO COMPLETE DETOX AND CONTINUE THE THERAPEUTIC PLAN OF CARE. PT IS ON A MODIFIED 6 DAY SUBUTEX AND PHENOBARBITAL TAPER ENDING ON THE 11/08/17. ENCOURAGED PT TO DRINK MORE FLUIDS TO PROMOTE DETOX PROCESS. BED ON LOWEST POSITION WITH SIDE RAILS UPX2, CALL LIGHT WITHIN REACH. SAFETY MEASURES IN PLACE. WILL GIVE ALL ENDORSEMENT TO ARTISTIC ASSOCIATE NURSE
[2017-11-07 20:30] VITALS: BP_SYST 119; BP_DIAS 67; BP_DIAS 76
[2017-11-07] MEDS ORDERED: OXCARBAZEPINE 300 MG TABLET PO SCH (21:00)
[2017-11-07] MEDS: diphenhydrAMINE 50 MG CAPSULE PO PRN (22:16)
[2017-11-07] MEDS: HYDROXYZINE PAMOATE 25 MG CAPSULE PO PRN (22:17)
--- NOTE | 2017-11-07 22:20 | NUR ---
PRN Medication Administration Patient verbalized increased anxiety and inability of falling asleep. PRN Vistaril and Benadryl administered as per order. Will continue to monitor.
--- NOTE | 2017-11-07 23:20 | NUR ---
PRN Medication Reassessment Patient noted in bed sleeping. Breathing even and non labored. No signs of restlessness or facial grimacing noted. Patient was given PRN Vistaril and Benadryl with medication noted to be effective. Will continue to monitor.
[2017-11-08 00:20] VITALS: BP 106/57
[2017-11-08 04:06] VITALS: BP 111/73
--- NOTE | 2017-11-08 07:00 | NUR ---
End of Shift Patient is in bed sleeping. Breathing even and non labored. Patient is a 22 year old male admitted on 11/02/17 for Benzo and Opiate Dependence under the care of Dr. Brown. He is currently receiving a 6 day Phenobarbital and 6 day Subutex taper. No Known Allergies, Full Code, Regular Diet, placed on fall and seizure precautions, and skin noted intact. Patients past medical history noted as Neuropathy, anxiety, mood disorder, asthma, ADHD, and history of seizures due to withdrawal. Patient was given PRN Vistaril and Benadryl with medications noted to be effective. Last noted COWS 4 and CIWA 3. All needs attended to promptly. Will endorse to continue plan of care as ordered.
--- NOTE | 2017-11-08 07:35 | NUR ---
START OF SHIFT RECEIVED PT RESTING IN ROOM, FLAT AFFECT, A/O X4, RESPIRATIONS EVEN AND UNLABORED. PT REPORTS HAVING SWEATS AND MILD ANXIETY. PT IS ON A MODIFIED SUBUTEX AND PHENOBARBITAL TAPER ENDING TODAY 10/26/17. ENCOURAGED PT TO DRINK MORE FLUIDS TO PROMOTE DETOX PROCESS. BED ON LOWEST POSITION WITH SIDE RAILS UPX2, CALL LIGHT WITHIN REACH. SAFETY MEASURES IN PLACE. WILL CONTINUE TO MONITOR AND PROVIDE SUPPORT.
[2017-11-08 08:00] VITALS: BP 103/52
[2017-11-08 08:02] LABS: CREATININE 0.8 mg/dL (0.6-1.3); MAGNESIUM 1.7 mg/dL (1.8-2.4)
[2017-11-08] MEDS: CLONIDINE HCL 0.1 MG TABLET PO SCH ×2 (09:00→20:55)
[2017-11-08] MEDS ORDERED: PHENOBARBITAL 60 MG TABLET PO SCH (09:00)
[2017-11-08] MEDS ORDERED: BUPRENORPHINE HCL 2 MG TAB.SUBL SL SCH (09:00)
[2017-11-08] MEDS: BACLOFEN 20 MG TABLET PO SCH ×3 (09:06→20:55)
[2017-11-08] MEDS: BUPRENORPHINE HCL 2 MG TAB.SUBL SL SCH ×2 (09:08→20:55)
[2017-11-08] MEDS: TAMSULOSIN HCL 0.4 MG CAP.SR.24H PO SCH ×2 (09:08→20:55)
[2017-11-08] MEDS: PHENOBARBITAL 60 MG TABLET PO SCH ×2 (09:09→20:56)
[2017-11-08] MEDS: OXCARBAZEPINE 300 MG TABLET PO SCH ×2 (09:12→20:55)
[2017-11-08 12:00] VITALS: BP 116/67
[2017-11-08] MEDS: DICYCLOMINE HCL 20 MG TABLET PO PRN (14:15)
[2017-11-08] MEDS ORDERED: MAGNESIUM OXIDE 400 MG TABLET PO ONE (15:00)
[2017-11-08 16:00] VITALS: BP 129/75
--- NOTE | 2017-11-08 19:05 | NUR ---
Start of Shift Patient Received. Patient is in his room, awake, alert and verbally responsive. Breathing even and non labored. Patient is a 22 year old male admitted on 11/02/17 for Benzo and Opiate Dependence under the care of Dr. Brown. He is currently receiving a 6 day Phenobarbital and 6 day Subutex taper. No Known Allergies, Full Code, Regular Diet, placed on fall and seizure precautions, and skin noted intact. Patients past medical history noted as Neuropathy, anxiety, mood disorder, asthma, ADHD, and history of seizures due to withdrawal. Per endorsement, patient was given PRN Bentyl with medication noted to be effective. last noted COWS 2 and CIWA 2. All needs attended to promptly. Will continue to monitor.
--- NOTE | 2017-11-08 19:05 | NUR ---
Start of Shift Patient Received. Patient is in his room sleeping. Breathing even and non labored. Patient is a 33 year old male admitted on 11/04/17 for Opiates and Benzo Dependence under the care of Dr. Brown. Patient verbalizes allergies to Paroxetine, Rifampin, Vancomycin, Full code, Regular Diet, placed on fall precautions. Skin is noted with azul to the Right BKA. 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 Per endorsement, patient was given One time dose of Zyprexa and PRN Vistaril, Robaxin, and Toradol with all medications noted to be effective. Last noted COWS 6 and CIWA 6. All needs attended to promptly. Will continue plan of care as ordered. Addendum: 11/09/17 at 0412 by RATNA HARMAN LVN ENTERED IN ERROR: WRONG PATIENT
--- NOTE | 2017-11-08 19:26 | NUR ---
END OF SHIFT PT RESTING IN ROOM, A/O X4, RESPIRATIONS EVEN AND UNLABORED. PT REPORTS SWEATING AND MILD ANXIETY. PT STATED HE WANTED TO LEAVE THE UNIT EARLY BEFORE COMPLETING DETOX. PT DOES NOT SEEM MOTIVATED AND NEEDS MORE EDUCATION AND ENCOURAGEMENT. MG REPLACEMENT ORDERED AND GIVEN ON SHIFT. PT WAS GIVEN BENTYL 20 MG PO PRN AT 1415 FOR GI SPASMS AND PT REPORTED MED WAS EFFECTIVE. PT STATED, "I EMPTIED MY BLADDER AFTER TAKING THE BENTYL", UPON BENTYL REASSESSMENT. ENCOURAGED PT TO DRINK MORE FLUIDS TO PROMOTE DETOX. MAGNESIUM REPLACEMENT ORDERED AND GIVEN ON SHIFT. LAST COWS 2 CIWA 2. BED ON LOWEST POSITION WITH SIDE RAILS UPX2, CALL LIGHT WITHIN REACH. SAFETY MEASURES IN PLACE. ALL NEEDS ATTENDED. WILL GIVE ALL ENDORSEMENT AND PERTINENT DATA TO BANQUET ATTENDANT NURSE.
[2017-11-08 20:42] VITALS: BP 117/73
[2017-11-08] MEDS: HYDROXYZINE PAMOATE 25 MG CAPSULE PO PRN (22:41)
[2017-11-08] MEDS: diphenhydrAMINE 50 MG CAPSULE PO PRN (22:41)
--- NOTE | 2017-11-08 22:45 | NUR ---
PRN Medication Administration Patient is verbalizing increased anxiety and inability of falling asleep. PRN Vistaril and Benadryl administered as per order. Will continue to monitor.
--- NOTE | 2017-11-09 00:15 | NUR ---
Vitals Refused patient noted in bed sleeping. Breathing even and non labored. No facial grimacing noted or restlessness. Patient refused 0000 vitals and verbalized "Im trying to sleep. please let me sleep." Will continue to monitor. Addendum: 11/09/17 at 0214 by RATNA HARMAN LVN Amended: Links added.
--- NOTE | 2017-11-09 04:08 | NUR ---
Vitals Refused Patient noted in bed sleeping. Breathing even and non labored. No facial grimacing noted. Patient refused vitals and verbalized "no I just want to sleep." No restlessness or discomfort noted. Will continue to monitor. Addendum: 11/09/17 at 0410 by RATNA HARMAN LVN Amended: Links added.
--- NOTE | 2017-11-09 07:13 | NUR ---
Start of Shift Patient Received. Patient is in his room, awake, alert and verbally responsive. Breathing even and non labored. Patient is a 22 year old male admitted on 11/02/17 for Benzo and Opiate Dependence under the care of Dr. Brown. He is currently receiving a 6 day Phenobarbital and 6 day Subutex taper. No Known Allergies, Full Code, Regular Diet, placed on fall and seizure precautions, and skin noted intact. Patients past medical history noted as Neuropathy, anxiety, mood disorder, asthma, ADHD, and history of seizures due to withdrawal. Patient was given PRN Vistaril and Benadryl with medications noted to be effective. Last noted COWS 2 and CIWA 2. All needs attended to promptly. Will endorse to continue plan of care as ordered. Addendum: 11/09/17 at 0713 by RATNA HARMAN LVN ERROR
--- NOTE | 2017-11-09 07:14 | NUR ---
End of Shift Patient is in bed sleeping. Breathing even and non labored. Patient is a 22 year old male admitted on 11/02/17 for Benzo and Opiate Dependence under the care of Dr. Brown. He is currently receiving a 6 day Phenobarbital and 6 day Subutex taper. No Known Allergies, Full Code, Regular Diet, placed on fall and seizure precautions, and skin noted intact. Patients past medical history noted as Neuropathy, anxiety, mood disorder, asthma, ADHD, and history of seizures due to withdrawal. Patient was given PRN Vistaril and Benadryl with medications noted to be effective. Last noted COWS 2 and CIWA 2. All needs attended to promptly. Will endorse to continue plan of care as ordered.
--- NOTE | 2017-11-09 07:30 | NUR ---
START OF SHIFT Pt 22 y/o male admitted for opiate/ benzo dependence. Pt received in room on bed with eyes closed resting, but easily arousable to name. Pt alert and oriented to name, place, and time. Perr[place]. Skin warm and slightly moist to touch. Respirations even and unlabored. It was reported that pt slept for 6 hours last night. Bed on lowest position with side rails x2 up for safety. Call light within reach. No distress noted at this time.
[2017-11-09 08:00] VITALS: BP 98/52
[2017-11-09 08:30] VITALS: BP 110/64
[2017-11-09] MEDS ORDERED: PHENOBARBITAL 60 MG TABLET PO SCH (09:00)
[2017-11-09] MEDS ORDERED: BUPRENORPHINE HCL 2 MG TAB.SUBL SL SCH (09:00)
[2017-11-09] MEDS: TAMSULOSIN HCL 0.4 MG CAP.SR.24H PO SCH ×2 (09:22→21:28)
[2017-11-09] MEDS: CLONIDINE HCL 0.1 MG TABLET PO SCH ×2 (09:22→21:28)
[2017-11-09] MEDS: OXCARBAZEPINE 300 MG TABLET PO SCH (09:22)
[2017-11-09] MEDS: BACLOFEN 20 MG TABLET PO SCH ×3 (09:22→21:29)
[2017-11-09] MEDS: NICOTINE 14 MG/24HR PATCH TD PRN (11:15)
--- NOTE | 2017-11-09 11:17 | NUR ---
PRN Pt requesting for nicotine patch. Nicotine patch prn per MD order given and tolerated well.
--- NOTE | 2017-11-09 12:17 | NUR ---
PRN EVAL Pt states nicotine patch effective.
[2017-11-09 12:54] VITALS: BP 111/58
[2017-11-09] MEDS: DICYCLOMINE HCL 20 MG TABLET PO PRN ×2 (13:52→21:28)
--- NOTE | 2017-11-09 13:57 | NUR ---
PRN Pt with c/o stomach cramps. Bentyl po prn per MD order given and tolerated well.
--- NOTE | 2017-11-09 14:57 | NUR ---
PRN EVAL Pt states bentyl was effective.
[2017-11-09 16:00] VITALS: BP 106/52
--- NOTE | 2017-11-09 18:39 | NUR ---
END OF SHIFT Pt 22 y/o male admitted for opiate / benzo dependence. Pt alert and oriented to name, place, and time. Perrla. Skin warm and dry to touch. Respirations even and unlabored. No hand tremors noted. Pt observed mostly isolative to room throughout the day. Pt attended group activity. Pt was seen by MD today. Pt medication compliant and tolerated well. No ASE noted. Bed on lowest position with side rails x2 up for safety. Call light within reach. No distress noted at this time.
--- NOTE | 2017-11-09 19:05 | NUR ---
Start of Shift Patient Received. Patient is in his room, awake, alert and verbally respsonive. Breathing even and non labored. Patient is a 22 year old male admitted on 11/02/17 for Benzo and Opiate Dependence under the care of Dr. Brown. Patient has completed a 6 day Phenobarbital and 6 day Subutex taper. No Known Allergies, Full Code, Regular Diet, placed on fall and seizure precautions, and skin noted intact. Patients past medical history noted as Neuropathy, anxiety, mood disorder, asthma, ADHD, and history of seizures due to withdrawal. Per endorsement, patient was given PRN Bentyl with medication noted to be effective. Patient is set for discharge tomorrow 11/10/17. Last noted COWS 2 and CIWA 2. All needs attended to promptly. Will continue plan of care as ordered.
[2017-11-09] MEDS ORDERED: OXCA150T5 PO (19:58)
[2017-11-09] MEDS ORDERED: BACL20TA PO (19:58)
[2017-11-09] MEDS ORDERED: CLON0.1T14 PO (19:58)
[2017-11-09] MEDS ORDERED: HYDR-3895 PO (19:58)
[2017-11-09] MEDS ORDERED: IBUP-1955 PO (19:58)
[2017-11-09] MEDS ORDERED: DIPH50CA37 PO (19:58)
[2017-11-09 20:46] VITALS: BP 118/71
[2017-11-09] MEDS: OXCARBAZEPINE 150 MG TABLET PO SCH (21:29)
[2017-11-09] MEDS: HYDROXYZINE PAMOATE 25 MG CAPSULE PO PRN (21:32)
[2017-11-09] MEDS: diphenhydrAMINE 50 MG CAPSULE PO PRN (21:32)
--- NOTE | 2017-11-09 21:35 | NUR ---
PRN Medication Administration Patient is verbalizing increased anxiety and inability of falling asleep. PRN Vistaril and Benadryl administered as per order. Will continue to monitor.
--- NOTE | 2017-11-09 22:30 | NUR ---
PRN Medication Reassessment Patient noted in bed sleeping. Breathing even and non labored. No signs of facial grimacing noted. Patient continues to rest well with no discomfort noted. Patient was given PRN Vistaril and Benadryl with medication noted to be effective. Will continue to monitor.
[2017-11-10 00:30] VITALS: BP 105/66
[2017-11-10 04:20] VITALS: BP 101/59
--- NOTE | 2017-11-10 07:07 | NUR ---
End of Shift Patient is in bed sleeping. Breathing even and non labored. No signs of pain or discomfort noted. Patient is a 22 year old male admitted on 11/02/17 for Benzo and Opiate Dependence under the care of Dr. Brown. Patient has completed a 6 day Phenobarbital and 6 day Subutex taper. No Known Allergies, Full Code, Regular Diet, placed on fall and seizure precautions, and skin noted intact. Patients past medical history noted as Neuropathy, anxiety, mood disorder, asthma, ADHD, and history of seizures due to withdrawal. Patient was given PRN Bentyl, Vistaril, and Benadryl with medications noted to be effective. Patient is set for discharge today 11/10/17. Last noted COWS 1 and CIWA 2. All needs attended to promptly. Will endorse to continue plan of care as ordered.
--- NOTE | 2017-11-10 07:30 | NUR ---
START OF SHIFT Pt 22 y/o male admitted for opiate/ benzo dependence. Pt received in room on bed with eyes closed resting, but easily arousable to name. Pt alert and oriented to name, place, and time. Perr[place]. Skin warm and slightly moist to touch. Respirations even and unlabored. It was reported that pt slept for 5 hours last night. Pt is scheduled to be discharged home today. Bed on lowest position with side rails x2 up for safety. Call light within reach. No distress noted at this time.
[2017-11-10 08:00] VITALS: BP 105/62
[2017-11-10] MEDS: OXCARBAZEPINE 150 MG TABLET PO SCH (08:25)
[2017-11-10] MEDS: TAMSULOSIN HCL 0.4 MG CAP.SR.24H PO SCH (08:25)
[2017-11-10] MEDS: BACLOFEN 20 MG TABLET PO SCH (08:25)
[2017-11-10] MEDS: CLONIDINE HCL 0.1 MG TABLET PO SCH (08:29)
--- NOTE | 2017-11-10 09:20 | NUR ---
DISCHARGE Pt 22 y/o male admitted for opiate/ bzo dependence. Pt alert and oriented to name, place, and time. Perrla. Skin warm and dry to touch. Respirations even and unlabored. Pt discharged to home via private transport. No belongings in cabinet noted. Belongings in cassette( contacts) , discharge papers, and prescriptions packed in pt bag. VS wnl. Pt denies any SI/ HI. Pt excited about discharge. No distress noted.
== END 2017-11-10 09:20 | disposition home or self-care (01) | DRG 895 ==
LOC: SRC 10:46
PROVIDERS: ADMIT Internal Medicine; ATTEND Internal Medicine
PROC: HZ2ZZZZ Detoxification Services for Substance Abuse Treatment (ICD-10-PCS; principal; 2017-11-02)
PROC: HZ41ZZZ Group Counseling for Substance Abuse Treatment, Behavioral (ICD-10-PCS; 2017-11-04)
PROC: HZ31ZZZ Individual Counseling for Substance Abuse Treatment, Behavioral (ICD-10-PCS; 2017-11-04)
DX: F13.232 Sedative, hypnotic or anxiolytic dependence with withdrawal with perceptual disturbance (principal); I15.9 Secondary hypertension, unspecified; G62.9 Polyneuropathy, unspecified; F29 Unspecified psychosis not due to a substance or known physiological condition; F41.9 Anxiety disorder, unspecified; Z81.1 Family history of alcohol abuse and dependence; Z81.8 Family history of other mental and behavioral disorders; Z82.49 Family history of ischemic heart disease and other diseases of the circulatory system; J45.20 Mild intermittent asthma, uncomplicated; F90.9 Attention-deficit hyperactivity disorder, unspecified type; Z91.89 Other specified personal risk factors, not elsewhere classified; F39 Unspecified mood [affective] disorder; F17.210 Nicotine dependence, cigarettes, uncomplicated; G47.419 Narcolepsy without cataplexy; R33.0 Drug induced retention of urine; F11.21 Opioid dependence, in remission
CPT/HCPCS: 36415; 70030-TC; 80307; 80345; 80346; 80349; 83735; 85025; 86580; 86592; 86705; 86803; 87340; 87806; 93005; G0480; J2405; J8499; Q0162; Q0163